=== PATIENT | male | born 1960 | race Caucasian/White ===

== ENCOUNTER 2017-03-31 13:06 | Day surgery (SDC) | payer MEDICARE ==
[~2017-03-31] VITALS: Ht 175.3 cm; Wt 90.9 kg
[~2017-03-31 13:06] MED LIST: LIDOcaine Viscous 15ml cup ONE; MIDAZolam 1mg/ml 10ml vial ONE; fentaNYL/PF 50MCG/1 ML 2ML syringe ONE
[2017-03-31] MEDS ORDERED: AMLO-93 PO (13:28)
[2017-03-31] MEDS ORDERED: CARV-50 PO (13:28)
[2017-03-31] MEDS ORDERED: ASPI81TA52 PO (13:28)
[2017-03-31] MEDS ORDERED: NITR0.4T51 SL (13:28)
[2017-03-31] MEDS ORDERED: ISOS30TA9 PO (13:28)
[2017-03-31] MEDS ORDERED: ATOR40TA PO (13:28)
[2017-03-31 13:58] VITALS: BP 142/111
[2017-03-31] MEDS ORDERED: fentaNYL/PF 50MCG/1 ML 2ML syringe ONE (14:24)
[2017-03-31 15:04] VITALS: BP 135/78
[2017-03-31 15:14] VITALS: BP 125/77
[2017-03-31 15:24] VITALS: BP 118/66
[2017-03-31 15:34] VITALS: BP 119/71
== END 2017-03-31 15:50 | disposition home or self-care (01) ==
LOC: GI LAB 13:06
PROVIDERS: ATTEND Internal Medicine Gastroenterology
DX: D12.5 Benign neoplasm of sigmoid colon (principal); K63.5 Polyp of colon; J44.9 Chronic obstructive pulmonary disease, unspecified; I10 Essential (primary) hypertension; I25.2 Old myocardial infarction; I25.10 Atherosclerotic heart disease of native coronary artery without angina pectoris; E78.5 Hyperlipidemia, unspecified; F17.210 Nicotine dependence, cigarettes, uncomplicated; F10.21 Alcohol dependence, in remission; Z95.828 Presence of other vascular implants and grafts; Z86.74 Personal history of sudden cardiac arrest; Z86.010 Personal history of colon polyps; Z98.890 Other specified postprocedural states; Z79.82 Long term (current) use of aspirin; Z79.899 Other long term (current) drug therapy
CPT/HCPCS: 45380; 45385; 99153; G0500; J2250; J3010; J7030; A4620

== ENCOUNTER 2017-06-16 14:30 | Outpatient (CLI) | payer MEDICARE, MEDICAID ==
[~2017-06-16 14:30] MED LIST changes: +AMLO-93 PO; +ASPI81TA52 PO; +ATOR40TA PO; +CARV-50 PO; +ISOS30TA9 PO; -LIDOcaine Viscous 15ml cup ONE; -MIDAZolam 1mg/ml 10ml vial ONE; +NITR0.4T51 SL; -fentaNYL/PF 50MCG/1 ML 2ML syringe ONE
== END 2017-06-16 23:59 | disposition home or self-care (01) ==
LOC: 64 CT 14:30
PROVIDERS: ATTEND Surgery
DX: I10 Essential (primary) hypertension (principal); J44.9 Chronic obstructive pulmonary disease, unspecified; F17.200 Nicotine dependence, unspecified, uncomplicated; Z98.890 Other specified postprocedural states
CPT/HCPCS: 74176